=== PATIENT | female | born 1985 | race Caucasian/White ===

== ENCOUNTER 2019-06-14 13:42 | Inpatient (IN) | payer OTHER ==
[~2019-06-14] VITALS: Ht 180.3 cm; Wt 104.3 kg
[2019-06-17] MEDS ORDERED: PRENATAL TABLE1 EAC1 PO (05:42)
== END 2019-06-19 12:31 | disposition home or self-care (01) | DRG 807 ==
LOC: LDR 13:42 → OB/GYN 06-17 01:48
PROVIDERS: ADMIT Specialist
PROC: 10E0XZZ Delivery of Products of Conception, External Approach (ICD-10-PCS; principal; 2019-06-17)
PROC: 0UQGXZZ Repair Vagina, External Approach (ICD-10-PCS; 2019-06-17)
PROC: 4A1HXCZ Monitoring of Products of Conception, Cardiac Rate, External Approach (ICD-10-PCS; 2019-06-17)
PROC: 4A033R1 Measurement of Arterial Saturation, Peripheral, Percutaneous Approach (ICD-10-PCS; 2019-06-17)
DX: O71.4 Obstetric high vaginal laceration alone (principal); Z37.0 Single live birth; Z3A.40 40 weeks gestation of pregnancy

== ENCOUNTER 2021-07-25 14:02 | Emergency (ER) | payer OTHER ==
[~2021-07-25] VITALS: Ht 180.3 cm; Wt 86.2 kg
[~2021-07-25 14:02] MED LIST: PRENATAL TABLE1 EAC1 PO
[2021-07-25] MEDS ORDERED: PRENATAL + DHA1 EAC1 PO (14:09)
== END 2021-07-25 17:20 | disposition home or self-care (01) ==
LOC: ER 14:02
DX: N39.0 Urinary tract infection, site not specified (principal); Z3A.20 20 weeks gestation of pregnancy

== ENCOUNTER 2021-08-05 15:54 | Outpatient (CLI) | payer OTHER ==
[~2021-08-05 15:54] MED LIST changes: +PRENATAL + DHA1 EAC1 PO
== END 2021-08-05 17:12 | disposition home or self-care (01) ==
LOC: PRENATAL 15:54
PROVIDERS: ATTEND Obstetrics & Gynecology Maternal & Fetal Medicine
DX: O09.529 Supervision of elderly multigravida, unspecified trimester (principal); O35.0XX0 Maternal care for (suspected) central nervous system malformation in fetus, not applicable or unspecified; O35.3XX0 Maternal care for (suspected) damage to fetus from viral disease in mother, not applicable or unspecified

== ENCOUNTER 2021-11-11 11:31 | Outpatient (CLI) | payer OTHER ==
[~2021-11-11] VITALS: Ht 180.3 cm; Wt 98.9 kg
[2021-11-11] MEDS ORDERED: ANTIFUNGAL113 GM (11:58)
== END 2021-11-11 16:10 | disposition home or self-care (01) ==
LOC: OBS/DEL 11:31
PROVIDERS: ATTEND Obstetrics & Gynecology
DX: O71.89 Other specified obstetric trauma (principal); Z3A.36 36 weeks gestation of pregnancy; W18.30XA Fall on same level, unspecified, initial encounter; Y93.89 Activity, other specified; Y92.89 Other specified places as the place of occurrence of the external cause; Z91.013 Allergy to seafood

== ENCOUNTER 2021-12-02 11:35 | Outpatient (CLI) | payer OTHER ==
[~2021-12-02 11:35] MED LIST changes: +ANTIFUNGAL113 GM
[2021-12-02] MEDS ORDERED: VITAMIN C60 MG (11:56)
== END 2021-12-02 14:52 | disposition home or self-care (01) ==
LOC: OBS/DEL 11:35
PROVIDERS: ATTEND Obstetrics & Gynecology
DX: O47.1 False labor at or after 37 completed weeks of gestation (principal); Z3A.38 38 weeks gestation of pregnancy

== ENCOUNTER 2021-12-10 04:11 | Inpatient (IN) | payer OTHER ==
[~2021-12-10] VITALS: Ht 180.3 cm; Wt 100.7 kg
[~2021-12-10 04:11] MED LIST changes: +VITAMIN C60 MG
== END 2021-12-12 12:15 | disposition home or self-care (01) | DRG 807 ==
LOC: LDR 04:11 → OB/GYN 04:11
PROVIDERS: ADMIT Obstetrics & Gynecology; ATTEND Obstetrics & Gynecology
PROC: 10E0XZZ Delivery of Products of Conception, External Approach (ICD-10-PCS; principal; 2021-12-10)
PROC: 0KQM0ZZ Repair Perineum Muscle, Open Approach (ICD-10-PCS; 2021-12-10)
PROC: 4A1HXCZ Monitoring of Products of Conception, Cardiac Rate, External Approach (ICD-10-PCS; 2021-12-10)
DX: O70.1 Second degree perineal laceration during delivery (principal); Z37.0 Single live birth; O99.820 Streptococcus B carrier state complicating pregnancy; Z3A.39 39 weeks gestation of pregnancy; Z20.822 Contact with and (suspected) exposure to COVID-19